=== PATIENT | female | born 2000 | race Hispanic/Latino ===

== ENCOUNTER 2024-02-17 17:24 | Day surgery (SDC) | payer MEDICAID, SELFPAY ==
[2024-02-17 18:39] LABS: Bilirubin Neg (Negative); Blood, Urine Negative (Negative); Clarity Clear (Clear); Glucose, Urine (Dipstick) Normal (Negative); Ketone, Urine Negative (Negative); Leukocyte Negative (Negative); Nitrite Negative (Negative); Protein, Urine (Dipstick) Negative (Neg-Trace); Urobilinogen Normal mg/dL (Less than 2)
[2024-02-17 18:54] LABS: Bacteria/HPF Rare-Few HPF (None Seen); CAUTI Indications for Culture Pregnancy; Mucous/LPF Rare LPF (<2+); RBC/HPF 0-3 HPF (0-3); Squamous Epithelial 0-3 HPF (0-3); Urine Culture Reflex No No; WBC/HPF 0-3 HPF (0-3)
[2024-02-17 18:56] LABS: Urine Culture Reflex Yes Yes
[2024-02-17 19:14] VITALS: BMI 31.4
[2024-02-17] MEDS: Acetaminophen 500 MG TAB PO SCH (20:12)
[2024-02-19 06:25] LABS: Chlamydia by PCR, Vaginal Swab Not Detected (NotDetected); GC by PCR, Vaginal Swab Not Detected (NotDetected); Tric.vaginalis PCR,Vaginal Sw Not Detected (NotDetected)
== END 2024-02-17 20:30 | disposition home or self-care (01) ==
LOC: CSHLD/OP 17:24
PROVIDERS: ATTEND Obstetrics & Gynecology
DX: O47.03 False labor before 37 completed weeks of gestation, third trimester (principal); O09.213 Supervision of pregnancy with history of pre-term labor, third trimester; Z79.82 Long term (current) use of aspirin; Z79.899 Other long term (current) drug therapy; Z3A.30 30 weeks gestation of pregnancy
CPT/HCPCS: 81001; 87086; 87480; 87491; 87510; 87591; 87660; 87661; 99285; J2272